=== PATIENT | female | born 2000 | race Hispanic/Latino ===

== ENCOUNTER 2024-04-15 11:05 | Inpatient (IN) | payer MEDICAID, OTHER ==
[2024-04-15 12:40] VITALS: BMI 28.1
[2024-04-15] MEDS ORDERED: Labetalol HCl 100 MG/20 ML VIAL SLOW IVP PRN ×2 (13:36)
[2024-04-15] MEDS ORDERED: Calcium Gluc 4.6 MEQ/10 ML (100 MG/ML) SLOW IVP PRN (13:36)
[2024-04-15] MEDS ORDERED: Carboprost 250 MCG/ML AMP IM PRN (13:36)
[2024-04-15] MEDS ORDERED: hydrALAZINE 20 MG/ML VIAL SLOW IVP PRN ×3 (13:36)
[2024-04-15] MEDS ORDERED: Lorazepam 2 MG/ML VIAL SLOW IVP PRN (13:36)
[2024-04-15] MEDS ORDERED: Tranexamic Acid 1,000 MG/10 ML VIAL IVP PRN (13:36)
[2024-04-15] MEDS ORDERED: fentaNYL 50 mcg/mL 1 mL Vial SLOW IVP PRN (13:36)
[2024-04-15] MEDS ORDERED: Misoprostol 200 MCG TAB PR PRN (13:36)
[2024-04-15] MEDS ORDERED: HYDROcodone/Acetaminophen 5/325 mg Tablet PO PRN (13:36)
[2024-04-15] MEDS ORDERED: Acetaminophen 500 MG TAB PO PRN (13:36)
[2024-04-15] MEDS ORDERED: Ondansetron PF 4 MG/2 ML Vial IVP PRN (13:36)
[2024-04-15] MEDS ORDERED: Diphenoxylate HCl/Atropine Tablet PO PRN (13:36)
[2024-04-15] MEDS ORDERED: Promethazine HCl 25 MG/ML VIAL IM PRN (13:36)
[2024-04-15] MEDS ORDERED: Oxytocin 30 units/NS 500 ML 500 ML IV SCH ×2 (13:45)
[2024-04-15 14:13] LABS: Hematocrit 41.3 % (34.9-44.5); Hemoglobin 14.2 g/dL (12.0-15.5); Mean Corpuscular HGB CONC 34.4 g/dL (32.0-36.0); Mean Corpuscular Hemoglobin 30.4 pg (27.0-33.0); Mean Corpuscular Volume 88.4 fL (81.6-98.3); Mean Platelet Volume 13.1 fL (7.4-10.4); Platelet Count 239 10x3/uL (150-450); RBC Distribution Width 12.2 % (11.5-14.5); Red Blood Cell (RBC) Count 4.67 10x6/uL (3.90-5.03); White Blood Cell (WBC) Count 9.57 10x3/uL (3.5-10.5)
[2024-04-15] MEDS: Lactated Ringer's 1,000 ML IV SCH (14:17)
[2024-04-15 14:23] LABS: ALT (SGPT) 20 U/L (Less than 34); AST (SGOT) 33 U/L (11-34); Albumin 3.2 g/dL (3.1-4.5); Alkaline Phosphatase 187 U/L (40-110); Anion Gap 14 mmol/L (10-20); BUN (Urea Nitrogen) 7 mg/dL (7.0-18.7); Bilirubin, Total 0.2 mg/dL (0.3-1.2); Calc. Creatinine Clearance 175 mL/min (70-130); Calcium 9.1 mg/dL (7.8-10.44); Carbon Dioxide 18 mmol/L (22-29); Chloride 110 mmol/L (98-107); Estimated GFR 132; Globulin 3.6 g/dL (2.4-3.5); Glucose 84 mg/dL (70-105); Potassium 3.8 mmol/L (3.5-5.1); Protein, Total 6.8 g/dL (6.0-8.3); Sodium 138 mmol/L (136-145)
[2024-04-15 14:24] LABS: Creatinine, Urine 22.84 mg/dL (16.00-327.00); Protein, Urine Random Quant Less than 10 mg/dL (1-14)
[2024-04-15 14:44] LABS: HBsAg Index 0.21 S/CO (0-0.99); Hep B Surf Ag - L&D Non-Reactive S/CO (NonReactive)
[2024-04-15 14:45] LABS: Syphilis Antibody Nonreactive (Nonreactive); Syphilis Antibody Index 0.06 S/CO (<1.00 Non-Reactive)
[2024-04-15] MEDS: Misoprostol 100 MCG TAB VAG SCH (22:33)
[2024-04-16] MEDS: Oxytocin 30 units/NS 500 ML 500 ML IV SCH (06:25)
[2024-04-16] MEDS: Lidocaine 1% (PF) 30 ML VIAL SC PRN (09:10)
[2024-04-16] MEDS: Ibuprofen 800 MG TAB PO PRN (10:29)
[2024-04-16] MEDS ORDERED: Bisacodyl 10 MG SUPP PR PRN (12:11)
[2024-04-16] MEDS ORDERED: Milk Of Magnesia 30 ML UDCUP PO PRN (12:11)
[2024-04-16] MEDS ORDERED: Lanolin Ointment 7 GM TUBE TOP PRN (12:11)
[2024-04-16] MEDS ORDERED: hydrALAZINE 20 MG/ML VIAL SLOW IVP PRN (12:11)
[2024-04-16] MEDS ORDERED: HYDROcodone/Acetaminophen 5/325 mg Tablet PO PRN (12:11)
[2024-04-16] MEDS ORDERED: diphenhydrAMINE 25 MG CAP PO PRN (12:11)
[2024-04-16] MEDS ORDERED: Ondansetron PF 4 MG/2 ML Vial IVP PRN (12:11)
[2024-04-16] MEDS ORDERED: Preparation H Ointment 28 GM TUBE PR PRN (12:11)
[2024-04-16] MEDS ORDERED: Promethazine HCl 25 MG/ML VIAL IM PRN (12:11)
[2024-04-16] MEDS: Ferrous Sulfate 325 MG TAB PO SCH (12:44)
[2024-04-16] MEDS: Boostrix 0.5 ML (Tdap) VIAL (>/=7 yrs of age) IM ONE (12:44)
[2024-04-16] MEDS: Ibuprofen 800 MG TAB PO SCH (17:38)
[2024-04-16] MEDS: Docusate 100 MG CAP PO SCH (22:29)
[2024-04-17] MEDS: Prenatal Vitamin 1 TAB PO SCH (09:29)
[2024-04-18] MEDS: cloNIDine 0.1 MG TAB PO PRN (12:40)
[2024-04-18] MEDS: hydrALAZINE 20 MG/ML VIAL ONE ×2 (13:17→13:38)
[2024-04-18] MEDS: Magnesium Sulfate 20 gm/500 ml 4 GM/100 ML BAG IVPB SCH (14:22)
[2024-04-18] MEDS: Labetalol HCl 100 MG TAB PO SCH (14:53)
[2024-04-18] MEDS: Magnesium Sulfate 20 gm/500 ml 20 GM/500 ML BAG IVPB SCH (22:59)
[2024-04-19] MEDS: Magnesium Sulfate 20 gm/500 ml 20 GM/500 ML BAG ONE (09:11)
[2024-04-19] MEDS: Labetalol HCl 200 MG TAB PO SCH (23:56)
[2024-04-20 11:01] VITALS: BP 131/74; TEMP 98.4
== END 2024-04-20 15:50 | disposition home or self-care (01) | DRG 807 ==
LOC: CSHLD/OP 11:05 → CSHLD 19:25 → CSHPED 04-16 11:49 → CSHLD 04-18 14:13 → CSHPP 04-19 15:00
PROVIDERS: ADMIT Family Medicine; ATTEND Family Medicine
PROC: 10E0XZZ Delivery of Products of Conception, External Approach (ICD-10-PCS; principal; 2024-04-16)
PROC: 3E0334Z Introduction of Serum, Toxoid and Vaccine into Peripheral Vein, Percutaneous Approach (ICD-10-PCS; 2024-04-16)
DX: O13.4 Gestational [pregnancy-induced] hypertension without significant proteinuria, complicating childbirth (principal); Z37.0 Single live birth; O76 Abnormality in fetal heart rate and rhythm complicating labor and delivery; Z3A.37 37 weeks gestation of pregnancy; O26.893 Other specified pregnancy related conditions, third trimester; Z67.11 Type A blood, Rh negative
CPT/HCPCS: 36415; 80053; 82570; 84156; 85027; 85461; 86780; 86850; 86870; 86900; 86901; 86922; 87340; 90384; 96372; 99285; J0360; J2590; J3475